=== PATIENT | male | born 1990 | race Hispanic/Latino ===

== ENCOUNTER 2024-11-03 18:13 | Emergency (ER) | payer OTHER, SELFPAY ==
[2024-11-03 18:15] VITALS: BP 128/85
--- NOTE | 2024-11-03 19:14 | ED.GENMED ---
History of Present Illness
General
Chief Complaint: Skin Surface Trauma
Time Seen by Provider: 11/03/24 18:49
History of Present Illness
History of Present Illness:
34-year-old male presents for evaluation of a right knee laceration. He was at work when a vase fell and broke a piece of glass into the knee. He bandaged at the knee but continued to work. Here for evaluation as the bleeding will not stop. Last
tetanus was earlier this year
Review of Systems
Review of Systems
Allergies reviewed?: Yes
All Other Systems: ROS reviewed and negative except as documented in HPI and ROS
Phy Exam
Physical Exam
Physical Exam:
GEN: Well appearing, NAD, WDWN
HEENT: Oral mucosa moist, no scleral icterus
Cardiac: Regular rate
Lung: No respiratory distress, no tachypnea
MSK: No gross deformity or injuries
Skin: Good color, no pallor or jaundice, no rashes. 1 cm superficial laceration to the right lateral superior knee with no active bleeding, does not appear to be deep, no knee effusion
Neuro: AO x3, moves all extremities freely
Psych: Calm, cooperative
Course
Vital Signs
Initial and Last Documented VS:
Initial Vital Signs
Temp Pulse Resp BP Pulse Ox
98.5 F 86 16 128/85 96
11/03/24 18:15 11/03/24 18:15 11/03/24 18:15 11/03/24 18:15 11/03/24 18:15
Last Documented Vital Signs
Temp Pulse Resp BP Pulse Ox
98.5 F 86 16 128/85 96
11/03/24 18:15 11/03/24 18:15 11/03/24 18:15 11/03/24 18:15 11/03/24 19:15
Procedures
Laceration Closure
Right Knee:
Status of Wound: clean
Size of Wound in cm: 1
Description of Wound Edges: sharp
Preparation: cleaned with saline
Anesthesia: 1% Lidocaine with epi
Wound exploration: explored to base- no FB and no tendon involvement
Type of Closure: single layer closure
Skin Closure Material: 4-0 nylon
Number of sutures: 3
MDM/Problems Addressed
MDM/Problems Addressed:
No clinical signs of traumatic arthrotomy, wound closed at the bedside, no indication for antibiotics
*Pulse Oximetry
SaO2: 96
Oxygen Mode of Delivery: Room air
Patient hypoxic: no
*Critical Care Note
Total Time (30-74mins, 75-104mins- exclusive of procedures): Not Applicable
ED Attending Note
-
Portions of this chart may have been created with voice recognition software.� Occasional wrong word or��sound alike� substitutions may have occurred due to the inherent limitations of voice recognition software.
Discharge Plan
Departure
Patient Disposition: Home (Routine Discharge)
Date of Disposition: 11/03/24
Time of Disposition: 19:14
Patient with high blood pressure during this ER visit?: No
Discharge Problem:
Laceration of knee, right
Instructions: Laceration Repair With Stitches (DC)
Referrals:
NONE,* [Family Provider, Internal Medicine]
Activity Restrictions/Additional Instructions:
Keep dry for 24 hours then you may wash gently with soap and water each day. Keep covered as long as the prior day's bandage has blood or drainage
Suture removal in 10-14 days
Interventions
Interventions:
*Risk Screen - Suicide Last Done: 11/03/24 18:15
*General Assessment Last Done: 11/03/24 18:15
*Nursing Disposition Last Done: 11/03/24 19:19
ED-Skin Assessment Last Done: 11/03/24 19:10
Discharge Date and Time
Discharge Date/Time: 11/03/24 19:20
Print Language: CITIZEN [place]
== END 2024-11-03 19:20 | disposition home or self-care (01) ==
LOC: EMR 18:13
PROVIDERS: EMERGENCY PHYSICIAN Emergency Medicine
DX: S81.011A Laceration without foreign body, right knee, initial encounter (principal); W25.XXXA Contact with sharp glass, initial encounter; Y92.89 Other specified places as the place of occurrence of the external cause; Y99.0 Civilian activity done for income or pay
CPT/HCPCS: 12001; 99282